=== PATIENT | female | born 1985 | race Caucasian/White ===

== ENCOUNTER 2019-03-07 03:43 | Emergency (ER) | payer MEDICAID ==
[~2019-03-07] VITALS: Ht 175.3 cm; Wt 80.3 kg
[2019-03-07 03:50] VITALS: BP 119/76
--- NOTE | 2019-03-07 03:55 | NUR ---
PT TAKEN TO BED 10
[2019-03-07] MEDS ORDERED: ALBUTEROL SULFATE/IPRATROPIU 3 ML SOL IH ONE (04:00)
[2019-03-07] MEDS ORDERED: methylPREDNISolone SS 125 MG/2 ML VIAL IM ONE (04:00)
--- NOTE | 2019-03-07 04:00 | NUR ---
33 Y/O FEMALE PRESENTS TO ED, C/O SOB. PT STATES SYMPTOM STARTED YESTERDAY AND WORSENING TODAY. HX OF ASTHMA AND TAKES ALBUTEROL INHALER. PT STATES RUNNING OUT OF MEDICATION. LUNG SOUNDS BILAT CLEAR. NO RESPIRATORY DISTRESS NOTED. PT DENIES ANY CHEST PAIN. PT VSS. ERMD AWARE. WILL CONTINUE TO MONITOR.
[2019-03-07 04:31] VITALS: BP 119/76
--- NOTE | 2019-03-07 04:31 | NUR ---
PT DISCHARGED WITH PAPERWORK. EDUCATED PT REGARDING MEDICATIONS AND D/C INSTRUCTIONS. PT VERBALIZED UNDERSTANDING OF TEACHING. TOLD PT TO FOLLOW UP WITH PCP AND WHEN TO RETURN TO ED. PT STABLE CONDITION. ALL QUESTIONS ANSWERED.
== END 2019-03-07 04:31 | disposition home or self-care (01) ==
LOC: MED 03:43
DX: J45.901 Unspecified asthma with (acute) exacerbation (principal)
CPT/HCPCS: 94640; 96372; 99283; J2930; J7620

== ENCOUNTER 2019-06-24 11:57 | Emergency (ER) | payer MEDICAID, OTHER ==
[~2019-06-24] VITALS: Ht 175.3 cm; Wt 82.1 kg
--- NOTE | 2019-06-24 12:02 | NUR ---
Patient transferred to bed 4 via wheelchair by tech. RN evaluating patient at bedside.
[2019-06-24 12:03] VITALS: BP 113/52
[2019-06-24] MEDS ORDERED: CYCLOBENZAPRINE 10 MG TAB PO ONE (12:15)
[2019-06-24] MEDS ORDERED: KETOROLAC 30 MG/ML VIAL IM ONE (12:15)
--- NOTE | 2019-06-24 12:43 | NUR ---
Patient returned from XRAY.
[2019-06-24] MEDS ORDERED: HYDROcodone/APAP 5/325 MG 1 TAB TAB PO ONE (13:05)
--- NOTE | 2019-06-24 13:13 | NUR ---
pt continues to state pain 11/18. nadr. norco po administered
--- NOTE | 2019-06-24 13:44 | NUR ---
pt states pain 07/19, instructed pt that she will be sent home with prescription for pain/inflamation
[2019-06-24 13:45] VITALS: BP 120/57
--- NOTE | 2019-06-24 13:45 | NUR ---
Patient discharged with v/s stable. Written and verbal after care instructions given and explained. Patient alert, oriented and verbalized understanding of instructions. wheelchaired to boyfriends car by pastora neal. All questions addressed prior to discharge. ID band removed. Patient advised to follow up with PMD. Rx of tramadol, ibuprofen, flexeril given. Patient educated on indication of medication including possible reaction and side effects. Opportunity to ask questions provided and answered.
== END 2019-06-24 13:45 | disposition home or self-care (01) ==
LOC: MED 11:57
DX: M54.5 Low back pain (principal); J45.909 Unspecified asthma, uncomplicated
CPT/HCPCS: 72110; 96372; 99283; J1885